=== PATIENT | female | born 1965 | race Caucasian/White ===

== ENCOUNTER 2018-05-04 01:23 | Observation (INO) | payer BC, SELFPAY ==
[2018-05-04] VITALS (10 sets, daily range): BP systolic 104–125; BP diastolic 47–60; PULSE 61–85; RESP 16–20; TEMP 36.6–36.9; O2SAT 96–100; BMI 39.4; BMI 39.5
[2018-05-04 02:05] LABS: Bedside Glucose 123 mg/dL (70-110)
--- NOTE | 2018-05-04 02:10 | EKG12_ITS ---
Test Reason : ADM EKG Blood Pressure : / mmHG Vent. Rate : 059 BPM Atrial Rate : 059 BPM P-R Int : 216 ms QRS Dur : 088 ms QT Int : 478 ms P-R-T Axes : 067 -33 -01 degrees QTc Int : 473 ms Sinus bradycardia with 1st degree A-V block Left axis deviation Abnormal ECG Confirmed by SORIN RYAN, ROBERTO ([id number]), news videotape editor GOLDY MCGARRY ([id number]) on 05/06/2018 1:52:33 PM Referred By: MARTELL Confirmed By:ROBERTO ROWELL MD
[2018-05-04] MEDS: Atorvastatin Calcium 80 MG Tablet PO (02:51)
--- NOTE | 2018-05-04 03:18 | HP.PCM_ITS ---
Problem List (1) Chest pain Status: Acute (2) HTN (hypertension) Status: Chronic (3) Diabetes Status: Chronic (4) HLD (hyperlipidemia) Status: Acute History of Present Illness Date of Admission: 05/04/18 Chief Complaint: chest pain The patient is a 52 year old F with a significant history of hypertension; diabetes mellitus; hyperlipidemia; former smoker who presented to the emergency department at [facility] with chest pain. Her chest pain started at 5 AM on the day of presentation at [facility] ED (05/03/2018). Her chest pain is actually located under her left armpit and it radiates to her left. While she has a squeezing pain under her left arm, she has a tingling sensation in the left arm. Her chest pain started when she was sitting in the chair. Her chest pain is persistent and continues with a severity of about 7 out of 10. There are no aggravating factors. There were no ameliorating factors 2. However at the emergency department patient received a sublingual nitroglycerin to help with her chest pain. Later on she received morphine. The first morphine dose at the ED did not help pain. However, she got relieve from a second dose of the morphine At [facility], chest x-ray; EKG; troponin CBC and BMP was unremarkable. Patient was transferred to the hospital because patient's PCP although admits to [facility] had travelled; and the Hospitalist Group at [facility] will not admit patient's of that PCP. Her father at age 55 . He thinks that at about age 50 his father had a heart attack. Past Medical History Past Medical History (Chronic Problems): Chronic Problems HTN (hypertension) (Chronic) Diabetes (Chronic) Allergies tramadol Adverse Reaction (Verified 08/23/14 13:17) Nausea Home Medications: Ambulatory Orders Medication Instructions Recorded Insulin Glargine,Hum.rec.anlog 35 unit SC QHS 08/23/14 [Lantus] Lisinopril/Hydrochlorothiazide 1 tablet PO DAILY 08/23/14 [Zestoretic /12.5 Tablet] Metformin HCl [Glucophage] 850 mg PO TIDCM 08/23/14 Simvastatin [Zocor] 40 mg PO DAILY 08/23/14 glipiZIDE [Glucotrol] 10 mg PO BIDAC 08/23/14 Acetaminophen [Tylenol] 325 - 625 mg PO Q4H PRN PRN 08/30/14 Amitriptyline HCl 50 mg PO QHS 05/04/18 Gabapentin 600 mg PO QHS 05/04/18 Gabapentin [Neurontin] 300 mg PO BIDCM 05/04/18 Surgical History: cholecystectomy, hysterectomy, - - ; tubal ligation; conization of cervix Lives: Spouse/ Significant Other Smoking Status: Former smoker Tobacco Use: Non-smoker Alcohol: None - *Family History Maternal History Items: Heart Disease, - - Thyroid disease and prediabetes Paternal History Items: Diabetes, Heart Disease, Hypertension, - - Hyperlipidemia. Review of Systems Constitutional: Denies: Chills, Fever, Weight Change HEENT: Denies: Head Aches, Sinus Congestion, Sinus Drainage Cardiovascular: Reports: Chest Pain. Denies: Palpitations Respiratory: Denies: Cough, Shortness of breath at rest, Sputum production Gastrointestinal: Denies: Abdominal Pain, Nausea, Vomiting Genitourinary: Denies: Dysuria Musculoskeletal: Denies: Joint Pain, Joint Tenderness Skin: Denies: Rash, Wounds Neurological: Reports: Tingling - Left arm. Denies: Focal weakness, Numbness Psychiatric: Denies: Anxiety, Depression, Homicidal Ideations, Suicidal I deations Hematologic/ Lymphatic: Denies: Easy Bruising, Easy Bleeding VTE Information - Inpt Only VTE Present on Admission: No VTE Mechan Device Prophylaxis: None VTE Pharm Prophylaxis ordered?: Yes Patient Problems: Active and Suspected Problems Chest pain (Acute) HLD (hyperlipidemia) (Acute) - Physical Exam General: Alert, Oriented x3, Cooperative HEENT: Atraumatic, PERRLA, EOMI, Normocephalic Neck: Supple, No JVD, Negative Carotid Bruits Lungs: Clear to auscultation, Normal air movement Cardiovascular: Regular rate, No murmurs Abdomen: Bowel Sounds Present, Soft, Non Tender Extremities: No edema, Capillary Refill Less than 3 Seconds Skin: No rashes, No breakdown Musculoskeletal: No Tenderness to Palpation of Joints or Extremities Neurological: Cranial nerves II-XII grossly intact Psych/Mental Status: Normal Affect, Appropriate Vital Signs Temp Pulse Resp BP Pulse Ox 97.8 F 61 18 117/60 96 05/04/18 02:10 05/04/18 02:10 05/04/18 02:10 05/04/18 02:10 05/04/18 02:10 Oxygen Delivery Method Room Air Weight: 110.9 kg Body Mass Index (BMI) 39.4 Finger Stick Blood Glucose 237 Laboratory Tests Past 24 Hrs 05/04/18 03:12 Troponin I Pending POC Glucose 05/04/18 01:54 POC Glucose 123 H Assessment/Plan All Active Problems Chest pain (Acute) HLD (hyperlipidemia) (Acute) The patient is a 52 year old F with a significant history of hypertension; diabetes mellitus; hyperlipidemia; former smoker; and with family history of heart attack and heart disease who has chest pain Chest pain Admit to a monitored bed on PCU CXR from outside emergency department independently reviewed showed no acute cardiopulmonary process. EKG taken from outside emergency department and independently reviewed showed sinus rhythm with left axis deviation. Repeat at our hospital showed sinus rhythm; with left axis deviation with first-degree AV block with ventricular rate of 59. Received aspirin 324 at outside ED. ASA 81 mg p.o. daily Nitropaste was placed from outside ED. Because patient will be scheduled for stress test will remove Nitropaste. PRN morphine ordered for chest pain. We will check lipid panel. On home simvastatin. Will change to high intensity Lipitor. Stat EKG as needed for chest pain Chemical stress test in the AM if the cardiac enzymes are negative. Patient reported that she has never run on a treadmill. Hypertension On presentation her blood pressure was within goal. Hydrochlorothiazide and lisinopril continued Trend blood pressure and adjust blood pressure medication. Diabetes mellitus with diabetic neuropathy Blood glucose at our hospital was 123. Acceptable but below hospital goal of 140-180; putting patient at risk of hypoglycemia Would hold home basal insulin. Patient is being kept n.p.o. for stress test. Will order Accu-Chek every 6 hours and with correction scale insulin. Hyperlipidemia Statin as above. Neuropathy Gabapentin continued DVT prophylaxis Subcutaneous Lovenox Code Visit OBSV E&M: 94930 Initial observation care L3
[2018-05-04] MEDS: Morphine 2 MG/ML Syringe IV (03:49)
[2018-05-04] MEDS: 0.9% NaCl Peripheral Flush Adult/Peds IV (03:55)
[2018-05-04 05:25] LABS: Hematocrit 37.8 % (37-47); Hemoglobin 12.3 g/dl (12.0-15.0); Mean Corp Hgb Conc 32.5 g/gl (32-36); Mean Corpuscular Hgb 26.4 pg (27.0-32.0); Mean Corpuscular Volume 81.1 fL (81-99); Mean Platelet Vol. 11.4 fl (6.2-12.0); Platelet Count 209 K/mm3 (150-450); RBC Distribution Width CV 13.9 % (11.6-14.6); RBC Distribution Width SD 40.5 fl (35.1-43.9); Red Blood Count 4.66 M/mm3 (4.2-5.4); Scan Indicated on CBC? Y/N NO; White Blood Count 7.3 K/mm3 (4.4-11.0)
[2018-05-04 05:28] LABS: International Normalized Ratio 1.1; Prothrombin Time (Protime)PT. 13.5 SECONDS (11.7-14.9)
[2018-05-04 05:29] LABS: Partial Thromboplast Time 24.7 Seconds (24.1-36.2)
[2018-05-04 05:43] LABS: Anion Gap 8 (5-15); BUN 10 mg/dL (7-18); Calcium,Total 8.8 mg/dL (8.5-10.1); Chloride 107 mmol/L (98-107); Creatinine, Serum 0.62 mg/dL (0.55-1.02); EST Glomerular Filtration Rate 107 mL/min (>60); Est Glom Filt Rate - Afr Amer 129 mL/min (>60); Estimated Creatinine Clearance 100.49 ml/min; Glucose 116 mg/dL (74-106); Potassium 3.6 mmol/L (3.5-5.1); Sodium Level 140 mmol/L (136-145)
[2018-05-04 06:00] LABS: Cholesterol 148 mg/dL (200); High Density Lipoprotein 47 mg/dL; Triglycerides 117 mg/dL; Very Low Density Lipoprotein 23 mg/dL (5-40)
[2018-05-04] MEDS: Aspirin E.C. 81 MG Tablet PO (06:09)
[2018-05-04] MEDS: Lisinopril 10 MG Tablet PO (06:12)
[2018-05-04 08:01] LABS: Bedside Glucose 114 mg/dL (70-110)
--- NOTE | 2018-05-04 09:36 | NURSING ---
Patient to stress test at 0900.
[2018-05-04] MEDS: Gabapentin 300 MG Capsule PO (11:53)
[2018-05-04] MEDS: hydroCHLOROthiazide 12.5mg 12.5 MG PO (11:54)
[2018-05-04] MEDS: Insulin Lispro 100 UNIT/ML INSULN.PEN SQ (12:02)
[2018-05-04 12:05] LABS: Bedside Glucose 168 mg/dL (70-110)
--- NOTE | 2018-05-04 13:14 | STRESSREP_ITS ---
Stress Test Report Pharmacologic myocardial perfusion stress test. 52-year-old lady with a history of chest pain. Stress protocol: Resting EKG demonstrates normal sinus rhythm with a rate of 62 bpm normal intervals are noted resting blood pressure 118/82 mmHg. 0.4 mg of regadenoson was infused per usual protocol followed by rapid intravenous saline flush injection continuous EKG monitoring was performed. At rest there were no ST or T wave changes noted suggest abnormal flow reserve at peak infusion nonspecific ST-T wave changes were noted with no meet the criteria for ischemia. The resting blood pressure 118/82 with a final blood pressure 124/76. No clinical angina was noted. Next Myocardial perfusion protocol. 14.9 mCi of technetium 99m sestamibi was injected at rest. 0.4 mg of regadenoson was infused per usual protocol peak infusion 44.5 mCi of technetium 99m sestamibi was injected stress images were obtained stress and rest images we re reconstructed and compared in the short axis vertical and horizontal long axis. Gated images were also obtained next Perfusion SPECT analysis: Review of the stress images demonstrate normal uptake of tracer noted in all areas of the myocardium. The resting images similarly demonstrate normal uptake of tracer noted in all areas of the myocardium. No areas of reversibility are noted suggest ischemia. Gated SPECT analysis: The gated ejection fraction is noted to be 79%. Conclusion: Normal pharmacologic myocardial perfusion stress test. Preserved ejection fraction.
--- NOTE | 2018-05-04 15:03 | DCINST_ITS ---
- Discharge Diagnoses Current Active Problems: Current Active and Chronic Problems Chest pain (Acute) HTN (hypertension) (Chronic) Diabetes (Chronic) HLD (hyperlipidemia) (Acute) You will use the following diet at home:: Calorie/Carbohydrate Controlled (specify 1200, 1400, etc) - 1800 ADA diet Your food should be the consistency of: Regular Discharge Activity: May not drive while taking narcotic pain medications. Call your doctor if you observe: Fever of 101 or Higher, Inability to have a bowel movement, Shortness of breath, Fainting spells, Swelling in the ankles, Chest pain, Increased palpitations (irregular heartbeat) Allergies/Adverse Reactions: Allergies tramadol Adverse Reaction (Verified 08/23/14 13:17) Nausea Medications to take at Discharge Insulin Glargine,Hum.rec.anlog [Lantus] 35 unit SC QHS 08/23/14 Lisinopril/Hydrochlorothiazide [Zestoretic 11/19.5 Tablet] 1 tablet PO DAILY 08/23/14 Simvastatin [Zocor] 40 mg PO DAILY 08/23/14 glipiZIDE [Glucotrol] 10 mg PO BIDAC 08/23/14 Acetaminophen [Tylenol] 325 - 625 mg PO Q4H PRN PRN 08/30/14 Amitriptyline HCl 50 mg PO QHS 05/04/18 Gabapentin 600 mg PO QHS 05/04/18 Gabapentin [Neurontin] 300 mg PO BIDCM 05/04/18 Metformin HCl [Glucophage] 850 mg PO BID #0 05/04/18 Primary Care Physician: Jolene Bemreo MD [Primary Care Provider] - Please follow up with your Primary Care Physician in: In 2 weeks Test Results: Test results from this visit will be discussed in further detail at your follow- up appointment, if applicable.
--- NOTE | 2018-05-04 15:08 | DS.PCM_ITS ---
Discharge Date and Diagnosis - Problem List Patient Problems: Active and Suspected Problems Chest pain (Acute) HLD (hyperlipidemia) (Acute) Date of Admission: 05/04/18 Date of Discharge: 05/04/18 - Primary Discharge Diagnosis Active and Suspected Problems Chest pain (Acute) - Secondary Discharge Diagnosis Chronic Problems HTN (hypertension) (Chronic) Diabetes (Chronic) Hospital Course and Treatment Summary of Care Provided: The patient is a 52 year old F with significant history of hypertension; diabetes mellitus; hyperlipidemia; former smoker; and with family history of coronary artery disease and [place] was admitted with atypical left-sided chest pain with radiation to left arm. Patient was directly admitted from [facility]. CXR from outside emergency department showed no acute cardiopulmonary process.EKG showed sinus rhythm with left axis deviation. Repeat EKG sinus rhythm; with left axis deviation with first-degree AV block with ventricular rate of 59. Patient had serial troponin enzymes which were negative. Subsequently she had a pharmacological nuclear stress test which reported as no areas of reversibility to suggest ischemia and therefore was negative. Gated EF 79%. Discharge medication reconciliation done. Follow-up PCP in 1-2 weeks. Patient Problems: Active and Suspected Problems Chest pain (Acute) HLD (hyperlipidemia) (Acute) - Physical Exam Vital Signs Temp Pulse Resp BP Pulse Ox 98.5 F 65 16 104/47 L 99 05/04/18 08:37 05/04/18 12:15 05/04/18 08:37 05/04/18 08:37 05/04/18 08:37 Oxygen Delivery Method Room Air Weight: 244 lb 7.882 oz Body Mass Index (BMI) 39.4 Finger Stick Blood Glucose 237 Intake and Output for Last 24 Hours 05/02/18 05/03/18 05/04/18 23:59 23:59 23:59 Intake Total 500 / 500 Balance 500 / 500 Laboratory Tests Past 24 Hrs 05/04/18 05/04/18 05/04/18 03:12 05:10 05:10 WBC 7.3 RBC 4.66 Hgb 12.3 Hct 37.8 MCV 81.1 MCH 26.4 L MCHC 32.5 RDW 13.9 RDW Differential 40.5 Plt Count 209 MPV 11.4 PT INR APTT Sodium Potassium Chloride Carbon Dioxide Anion Gap BUN Creatinine Estim Creat Clear Calc Est GFR (MDRD) Af Amer Est GFR (MDRD) Non-Af BUN/Creatinine Ratio Glucose Calcium Troponin I < 0.015 < 0.015 Triglycerides 117 Cholesterol 148 LDL Cholesterol 78 VLDL Cholesterol 23 HDL Cholesterol 47 05/04/18 05/04/18 05/04/18 05:10 05:10 08:20 WBC RBC Hgb Hct MCV MCH MCHC RDW RDW Differential Plt Count MPV PT 13.5 INR 1.1 APTT 24.7 Sodium 140 Potassium 3.6 Chloride 107 Carbon Dioxide 25.0 Anion Gap 8 BUN 10 Creatinine 0.62 Estim Creat Clear Calc 100.49 Est GFR (MDRD) Af Amer 129 Est GFR (MDRD) Non-Af 107 BUN/Creatinine Ratio 16.0 Glucose 116 H Calcium 8.8 Troponin I < 0.015 Triglycerides Cholesterol LDL Cholesterol VLDL Cholesterol HDL Cholesterol POC Glucose 05/04/18 05/04/18 05/04/18 11:58 07:53 01:54 POC Glucose 168 H 114 H 123 H Discharge Activity: May not drive while taking narcotic pain medications. Call your doctor if you observe: Fever of 101 or Higher, Inability to have a bowel movement, Shortness of breath, Fainting spells, Swelling in the ankles, Chest pain, Increased palpitations (irregular heartbeat) Home Medications: Medications to take at Discharge Insulin Glargine,Hum.rec.anlog [Lantus] 35 unit SC QHS 08/23/14 Lisinopril/Hydrochlorothiazide [Zestoretic 11/19.5 Tablet] 1 tablet PO DAILY 08/23/14 Simvastatin [Zocor] 40 mg PO DAILY 08/23/14 glipiZIDE [Glucotrol] 10 mg PO BIDAC 08/23/14 Acetaminophen [Tylenol] 325 - 625 mg PO Q4H PRN PRN 08/30/14 Amitriptyline HCl 50 mg PO QHS 05/04/18 Gabapentin 600 mg PO QHS 05/04/18 Gabapentin [Neurontin] 300 mg PO BIDCM 05/04/18 Metformin HCl [Glucophage] 850 mg PO BID #0 05/04/18 Primary Care Physician: Jolene Bermeo MD [Primary Care Provider] - Please follow up with your Primary Care Physician in: In 2 weeks Medical Necessity - Tobacco Use Smoking Status: Former smoker Tobacco Use: Non-smoker Meaningful Use Info Meaningful Use Diagnoses (Choose all that apply): None applicable Code Visit OBSV E&M: 63961 Observation care discharge
== END 2018-05-04 11:45 | disposition home or self-care (01) ==
PROVIDERS: Admitting Provider Hospitalist; Family Provider Family Medicine; PCP Family Medicine; Visit Provider Internal Medicine
DX: R07.89 Other chest pain (principal); I10 Essential (primary) hypertension; R20.2 Paresthesia of skin; E11.40 Type 2 diabetes mellitus with diabetic neuropathy, unspecified; E78.5 Hyperlipidemia, unspecified; Z79.899 Other long term (current) drug therapy; Z79.4 Long term (current) use of insulin; Z87.891 Personal history of nicotine dependence; Z82.49 Family history of ischemic heart disease and other diseases of the circulatory system; I44.0 Atrioventricular block, first degree
CPT/HCPCS: 36415; 78452; 80048; 80061; 82962; 84484; 85027; 85610; 85730; 93005; 93017; 96374; 99218; A9500; A4216; G0378; G0379; J2785

== ENCOUNTER → 2020-06-20 10:23 | Outpatient (CLI) | payer MEDICAID, SELFPAY ==
[2020-06-20 09:40] VITALS: BMI 39.4
[2020-06-20 11:59] LABS: Absolute Lymphocyte Count 3.16 X10^3/uL (0.83-4.51); Absolute Neutrophil Count 3.5 X10^3/uL (2.0-7.7); Basophil# 0.08 X10^3/uL; Basophil% 1.1 % (0-1); Eosinophils% 1.4 % (0-5); Hematocrit 41.7 % (37-47); Hemoglobin 13.2 g/dL (12.0-15.0); Lymphocyte # 3.16 X10^3/ul (0.83-4.51); Lymphocyte % 43.9 % (19-41); Mean Corp Hgb Conc 31.7 g/dL (32-36); Mean Corpuscular Hgb 25.9 pg (27.0-32.0); Mean Corpuscular Volume 81.9 fL (81-99); Mean Platelet Vol. 11.8 fl (6.2-12.0); Monocyte# 0.38 X10^3/uL; Monocyte% 5.3 % (0-10); NRBC Flagged by Analyzer 0 % (0-5); Neutrophil # 3.45 X10^3/uL (2.7-7.7); Platelet Count 227 K/mm3 (150-450); RBC Distribution Width CV 13.5 % (11.6-14.6); RBC Distribution Width SD 40.1 fl (35.1-43.9); Red Blood Count 5.09 M/mm3 (4.2-5.4); White Blood Count 7.2 K/mm3 (4.4-11.0)
[2020-06-20 12:26] LABS: Microalbumin,Random Urine 13.2 mg/L (NO RANGE EST.)
[2020-06-20 12:27] LABS: AST(SGOT) 15 U/L (15-37); Alanine Aminotransfer ALT/SGPT 31 U/L (13-56); Alkaline Phosphatase 95 U/L (45-117); Anion Gap 6 (5-15); BUN 11 mg/dL (7-18); BUN/Creat Ratio 16.6 RATIO (10-20); Calcium,Total 9.5 mg/dL (8.5-10.1); Chloride 101 mmol/L (98-107); Cholesterol 144 mg/dL (200); Creatinine, Serum 0.66 mg/dL (0.55-1.02); EST Glomerular Filtration Rate 99 mL/min (>60); Est Glom Filt Rate - Afr Amer 120 mL/min (>60); Globulin 4.1 g/dL (2.2-4.2); Glucose 199 mg/dL (74-106); High Density Lipoprotein 60 mg/dL; Potassium 3.8 mmol/L (3.5-5.1); Protein, Total 8.1 g/dL (6.4-8.2); Sodium Level 135 mmol/L (136-145); Thyroid Stim Hormone (TSH) 0.87 uIU/mL (0.358-3.74); Triglycerides 135 mg/dL; Very Low Density Lipoprotein 27 mg/dL (5-40)
== END ==
PROVIDERS: PCP Internal Medicine; Referring Provider Internal Medicine Endocrinology, Diabetes & Metabolism; Visit Provider Internal Medicine Endocrinology, Diabetes & Metabolism
DX: E11.9 Type 2 diabetes mellitus without complications (principal); E78.5 Hyperlipidemia, unspecified; I10 Essential (primary) hypertension; D64.9 Anemia, unspecified; E78.00 Pure hypercholesterolemia, unspecified
CPT/HCPCS: 36415; 80053; 80061; 82043; 82570; 84443; 85025

== ENCOUNTER → 2020-12-24 08:54 | Outpatient (CLI) | payer BC, MEDICAID, SELFPAY ==
[2020-12-24 10:29] LABS: Vitamin B12 365 pg/mL (211-911)
[2020-12-25 17:07] LABS: Free Kappa Light Chains 24.1 mg/L (3.3-19.4); Free Lambda Light Chains 17.4 mg/L (5.7-26.3)
== END ==
PROVIDERS: PCP Internal Medicine; Referring Provider Psychiatry & Neurology Neurology; Visit Provider Psychiatry & Neurology Neurology
DX: G62.9 Polyneuropathy, unspecified (principal)
CPT/HCPCS: 36415; 82607; 82746; 83883

== ENCOUNTER → 2021-01-25 08:28 | Outpatient (CLI) | payer BC, MEDICAID, SELFPAY ==
--- NOTE | 2021-01-25 08:29 | MRI_ITS ---
STUDY: EXAMINATION - MRV BRAIN WITHOUT CONTRAST REASON FOR EXAM: Female, 55 years old. family history of cerebral aneurysm TECHNIQUE: 3D [id number] (TOF) imaging was performed in a 1.5 chito MRI scanner. COMPARISON: None. FINDINGS: Normal flow within the superior sagittal sinus. Normal flow within the superficial cortical veins. Normal flow within the paired internal cerebral veins, vein of [place] and straight sinus. There is preferential flow within the right transverse and sigmoid sinuses, however there is demonstrated flow within the left transverse and sigmoid sinus. Normal flow within the bilateral jugular bulbs. MRI/MRV Head Without Contrast IMPRESSION: Normal unenhanced MRV of the brain. Electronically Signed: Alex Hood MD at 14:23 EST Tel , Service support ,
== END ==
PROVIDERS: PCP Internal Medicine; Visit Provider Psychiatry & Neurology Neurology
DX: Z82.49 Family history of ischemic heart disease and other diseases of the circulatory system (principal)
CPT/HCPCS: 70544

== ENCOUNTER 2021-03-06 13:56 | Outpatient (CLI) | payer BC, MEDICAID, SELFPAY ==
[2021-03-06 18:05] LABS: Vitamin B12 430 pg/mL (211-911)
[2021-03-11 14:09] LABS: Albumin 3.9 g/dL (2.9-4.4); Alpha-1-Globulins 0.3 g/dL (0.0-0.4); Alpha-2-Globulins 1.2 g/dL (0.4-1.0); Gamma Globulin 1.1 g/dL (0.4-1.8); Immunoglobulin A 184 mg/dL (87-352); Immunoglobulin G 1048 mg/dL (586-1602); Immunoglobulin M 35 mg/dL (26-217); PROEL- TOTAL PROTEIN 7.6 g/dL (6.0-8.5)
== END 2021-03-06 23:59 | disposition short-term general hospital (02) ==
LOC: MTLAB 13:58
PROVIDERS: PCP Internal Medicine; Referring Provider Psychiatry & Neurology Neurology; Visit Provider Psychiatry & Neurology Neurology
DX: G62.9 Polyneuropathy, unspecified (principal)
CPT/HCPCS: 36415; 82607; 82746; 82784; 84165; 86334; 86335

== ENCOUNTER → 2021-06-28 | Outpatient (CLI) | payer BC, MEDICAID, SELFPAY ==
--- NOTE | 2021-06-28 08:40 | MRI_ITS ---
STUDY: MRA OF THE HEAD WITHOUT CONTRAST REASON FOR EXAM: Female, 55 years old. Headaches. Family history of cerebral aneurysm. TECHNIQUE: 3-D [id number]-[id number]-pqlmru (TOF) imaging was performed with MIPs. The study was performed unenhanced. COMPARISON: None. FINDINGS: Normal bilateral petrous carotid arteries. Normal right cavernous carotid artery with a normal supraclinoid bifurcation. Normal left cavernous carotid artery with a normal supraclinoid bifurcation. Normal right A1 segment of the anterior cerebral artery. Normal left A1 segment of the anterior cerebral artery. Normal intact anterior communicating artery (ACOM). Normal bilateral A2 segments of the anterior cerebral arteries. Normal right M1 and M2 segments of the middle cerebral arteries, with a normal M1 bifurcation. Normal left M1 and M2 segments of the middle cerebral arteries, with a normal M1 bifurcation. origin of the [employer] off the right internal carotid artery rather than widely patent right posterior communicating artery (PCOM). This accounts for the developmentally absent right P1 segment. Normal left posterior communicating artery (PCOM). Normal bilateral vertebral arteries. Normal basilar artery with a normal basilar bifurcation. The visualized bilateral superior cerebellar (SCA) arteries are normal. Developmentally absent right P1 segment. Normal left P1 segment. Normal bilateral P2 and visualized P3 segments of the posterior cerebral arteries. There is no demonstrated aneurysm of the [place]. There is no major vessel occlusion or hemodynamically significant stenosis. There is no demonstrated abnormality of the visualized brain. MRI/MRA Head ONLY without Contrast IMPRESSION: Normal MRA of the head Electronically Signed: Earl Thomas MD at 11:49 EDT ,
== END | disposition home or self-care (01) ==
LOC: MRI 08:40
PROVIDERS: PCP Internal Medicine; Referring Provider Psychiatry & Neurology Neurology; Visit Provider Psychiatry & Neurology Neurology
DX: R51.9 Headache, unspecified (principal); Z82.49 Family history of ischemic heart disease and other diseases of the circulatory system
CPT/HCPCS: 70544